=== PATIENT | female | born 1985 | race Caucasian/White ===

== ENCOUNTER → 2016-08-22 | Outpatient (CLI) | payer MEDICAID | LOC: CIMAGING 12:23 | PROVIDERS: ATTEND Family Medicine | DX: O26.843 Uterine size-date discrepancy, third trimester (principal); Z3A.28 28 weeks gestation of pregnancy ==

== ENCOUNTER → 2016-08-28 | Outpatient (CLI) | payer MEDICAID | LOC: FIMAGING 09:58 | PROVIDERS: ATTEND Family Medicine | DX: Z34.93 Encounter for supervision of normal pregnancy, unspecified, third trimester (principal); Z3A.31 31 weeks gestation of pregnancy ==

== ENCOUNTER → 2016-09-18 | Outpatient (CLI) | payer MEDICAID | LOC: FIMAGING 13:07 | PROVIDERS: ATTEND Family Medicine | DX: O36.5930 Maternal care for other known or suspected poor fetal growth, third trimester, not applicable or unspecified (principal); Z3A.34 34 weeks gestation of pregnancy ==

== ENCOUNTER → 2016-10-02 | Outpatient (CLI) | payer MEDICAID | LOC: FIMAGING 12:06 | PROVIDERS: ATTEND Family Medicine | DX: Z34.93 Encounter for supervision of normal pregnancy, unspecified, third trimester (principal); Z3A.36 36 weeks gestation of pregnancy ==

== ENCOUNTER → 2016-10-14 | Outpatient (CLI) | payer MEDICAID | LOC: FIMAGING 13:42 | PROVIDERS: ATTEND Family Medicine | DX: O36.5930 Maternal care for other known or suspected poor fetal growth, third trimester, not applicable or unspecified (principal); Z3A.38 38 weeks gestation of pregnancy ==

== ENCOUNTER → 2016-12-23 | Outpatient (CLI) | payer MEDICAID | LOC: FIMAGING 10:10 | PROVIDERS: ATTEND Family Medicine | DX: Z12.39 Encounter for other screening for malignant neoplasm of breast (principal); N63 Unspecified lump in breast ==

== ENCOUNTER 2017-03-27 13:11 | Emergency (ER) | payer MEDICAID ==
[2017-03-27] MEDS ORDERED: NS 1,000 ML IV ONE ×4 (13:26→15:23)
--- NOTE | 2017-03-27 13:26 | EDPHY ---
H & P Stated Complaint: 2 WEEKS DIARRHEA/LOW BACK PAIN TODAY FELT FAINT/SEEING SPOTS Time Seen by Provider: 03/27/17 13:26 HPI/ROS: CHIEF COMPLAINT: Lightheadedness, right back pain, intermittent diarrhea for 2 weeks HISTORY OF PRESENT ILLNESS: Patient has a 2 week history of intermittent diarrhea. The patient developed symptoms of lightheadedness, syncope, right back pain, right hip pain and subjective fevers earlier today. The patient denies any dysuria, cough or acute abdominal pain. The patient denies any recent antibiotic use. She has no history of fall or trauma. The patient did reportedly take Plan B last week. She denies any vaginal bleeding or discharge. The patient denies significant past medical history. The patient has no acute neurologic symptoms of numbness or weakness. The patient has developed a fine rash on her chest face and extremities. REVIEW OF SYSTEMS: A comprehensive 10 point review of systems is otherwise negative aside from elements mentioned in the history of present illness. Source: Patient Exam Limitations: No limitations - Personal History LMP (Females 10-55): 8-14 Days Ago Current Tetanus/Diphtheria Vaccine: Yes - Medical/Surgical History Hx Asthma: No Hx Chronic Respiratory Disease: No Hx Diabetes: No Hx Cardiac Disease: No Hx Renal Disease: No Hx Cirrhosis: No Hx Alcoholism: No Hx HIV/AIDS: No Hx Splenectomy or Spleen Trauma: No Other PMH: r elbow surgery/ MIGRAINES - Social History Smoking Status: Former smoker - Physical Exam Exam: General Appearance: Alert, no distress Eyes: Pupils equal and round no pallor or injection ENT, Mouth: Mucous membranes moist Respiratory: There are no retractions, lungs are clear to auscultation Cardiovascular: Regular rate and rhythm Gastrointestinal: Abdomen is soft and nontender, no masses, bowel sounds normal back: Right CVA tenderness Neurological: A&O, normal motor function, normal sensory exam, normal cranial nerves Skin: Fine papular rash consistent with viral is anthem Musculoskeletal: Neck is supple nontender Extremities: symmetrical, full range of motion Constitutional: Initial Vital Signs Temperature (C) 37 C 03/27/17 13:19 Heart Rate 102 H 03/27/17 13:19 Respiratory Rate 20 03/27/17 13:19 Blood Pressure 153/99 H 03/27/17 13:19 O2 Sat (%) 96 03/27/17 13:19 O2 Delivery Mode Room Air Allergies/Adverse Reactions: No Known Allergies Allergy (Verified 03/27/17 13:18) Home Medications: Medication Instructions Recorded NK [No Known Home Meds] 03/27/17 Medical Decision Making - Diagnostics EKG Interpretation: EKG: Complete interpretation has been separately recorded in the [facility] [employer] archive. Summary impression: Sinus rhythm, rate 98, single PVC noted ED Course/Re-evaluation: The patient presents to the ED for evaluation of lightheadedness, back pain and mild right hip pain. The patients urinalysis demonstrates no evidence of an acute infection. The patient's laboratory studies are within normal limits. The patient's EKG demonstrates no evidence of arrhythmia. The patient received IV fluid rehydration in the emergency department. She underwent serial examinations by myself. She is currently feeling much better. The patient's laboratory workup is unrevealing. The patient's EKG demonstrates no evidence of an obvious arrhythmia. The patient underwent serial examinations in the ED by myself over a 3 hour period. She is feeling much better at this time. The patient will return to the emergency department for any recurrent or worsening symptoms. Differential Diagnosis: Differential diagnosis considered includes dehydration, arrhythmia, metabolic abnormality, ectopic , viral syndrome - Data Points Laboratory Results: Laboratory Results 03/27/17 13:45 03/27/17 13:45 03/27/17 03/27/17 03/27/17 15:00 13:45 13:45 WBC RBC Hgb Hct MCV MCH MCHC RDW Plt Count MPV Neut % (Auto) Lymph % (Auto) [place] % (Auto) Eos % (Auto) Baso % (Auto) Nucleat RBC Rel Count Absolute Neuts (auto) Absolute Lymphs (auto) Absolute Monos (auto) Absolute Eos (auto) Absolute Basos (auto) Absolute Nucleated RBC Immature Gran % Immature Gran # Sodium 137 mEq/L mEq/L (134-144) Potassium 3.5 mEq/L mEq/L (3.5-5.2) Chloride 100 mEq/L mEq/L (97-110) Carbon Dioxide 18 mEq/l L mEq/l (22-31) Anion Gap 19 mEq/L H mEq/L (8-16) BUN 5 mg/dL L mg/dL (7-23) Creatinine 0.8 mg/dL mg/dL (0.6-1.0) Estimated GFR > 60 Glucose 107 mg/dL H mg/dL (70-100) Calcium 9.4 mg/dL mg/dL (8.5-10.4) Beta HCG, Qual NEGATIVE Urine Color PALE YELLOW Urine Appearance CLEAR Urine pH 6.0 (5.0-7.5) Ur Specific [place] 1.003 (1.002-1.030) Urine Protein NEGATIVE (NEGATIVE) Urine Ketones 1+ H (NEGATIVE) Urine Blood NEGATIVE (NEGATIVE) Urine Nitrate NEGATIVE (NEGATIVE) Urine Bilirubin NEGATIVE (NEGATIVE) Urine Urobilinogen NEGATIVE EU EU (0.2-1.0) Ur Leukocyte Esterase NEGATIVE (NEGATIVE) Urine Glucose NEGATIVE (NEGATIVE) 03/27/17 13:45 WBC 7.65 10^3/uL 10^3/uL (3.80-9.50) RBC 4.29 10^6/uL 10^6/uL (4.18-5.33) Hgb 14.7 g/dL g/dL (12.6-16.3) Hct 41.1 % % (38.0-47.0) MCV 95.8 fL fL (81.5-99.8) MCH 34.3 pg H pg (27.9-34.1) MCHC 35.8 g/dL g/dL (32.4-36.7) RDW 14.7 % % (11.5-15.2) Plt Count 192 10^3/uL 10^3/uL (150-400) MPV 9.9 fL fL (8.7-11.7) Neut % (Auto) 56.0 % % (39.3-74.2) Lymph % (Auto) 35.2 % % (15.0-45.0) [place] % (Auto) 7.3 % % (4.5-13.0) Eos % (Auto) 0.7 % % (0.6-7.6) Baso % (Auto) 0.5 % % (0.3-1.7) Nucleat RBC Rel Count 0.0 % % (0.0-0.2) Absolute Neuts (auto) 4.29 10^3/uL 10^3/uL (1.70-6.50) Absolute Lymphs (auto) 2.69 10^3/uL 10^3/uL (1.00-3.00) Absolute Monos (auto) 0.56 10^3/uL 10^3/uL (0.30-0.80) Absolute Eos (auto) 0.05 10^3/uL 10^3/uL (0.03-0.40) Absolute Basos (auto) 0.04 10^3/uL 10^3/uL (0.02-0.10) Absolute Nucleated RBC 0.00 10^3/uL 10^3/uL (0-0.01) Immature Gran % 0.3 % % (0.0-1.1) Immature Gran # 0.02 10^3/uL 10^3/uL (0.00-0.10) Sodium Potassium Chloride Carbon Dioxide Anion Gap BUN Creatinine Estimated GFR Glucose Calcium Beta HCG, Qual Urine Color Urine Appearance Urine pH Ur Specific [place] Urine Protein Urine Ketones Urine Blood Urine Nitrate Urine Bilirubin Urine Urobilinogen Ur Leukocyte Esterase Urine Glucose Medications Given: Discontinued Medications Sodium Chloride (Ns) 1,000 mls @ 0 mls/hr IV EDNOW ONE; Wide Open PRN Reason: Protocol Stop: 03/27/17 13:27 Last Admin: 03/27/17 13:46 Dose: 1,000 mls Sodium Chloride (Ns) 1,000 mls @ 0 mls/hr IV EDNOW ONE; Wide Open PRN Reason: Protocol Stop: 03/27/17 15:24 Last Admin: 03/27/17 15:28 Dose: 1,000 mls Departure - Departure Disposition: Home, Routine, Self-Care Clinical Impression: Dehydration, Vasovagal episode Condition: Good Instructions: Dehydration (ED) Additional Instructions: 1. Please increase your fluid intake as mild dehydration likely contributed your symptoms today. 2. Please return to the ED for markedly worsening symptoms or other concerns. 3. Please schedule a follow-up appointment with your primary care provider as needed. Referrals: Rosa Prado MD [Medical Doctor] - As per Instructions
--- NOTE | 2017-03-27 13:54 | CPEKG ---
Heart Rate: 98 RR Interval: 612 P-R Interval: 176 QRSD Interval: 82 QT Interval: 332 QTC Interval: 424 P [place]: 52 QRS [place]: -21 T Wave [place]: -12 EKG Severity - BORDERLINE ECG - EKG Impression: SINUS RHYTHM EKG Impression: VENTRICULAR PREMATURE COMPLEX Electronically Signed By: Ramiro Beltrán 27-Mar-2017 13:59:01
[2017-03-27 14:03] LABS: PLATELET COUNT 192 10^3/uL (150-400)
[2017-03-27 17:06] VITALS: BP 124/92; PULSE 92; RESP 18; TEMP 98.4; O2SAT 97
== END 2017-03-27 17:06 | disposition home or self-care (01) ==
DX: R55 Syncope and collapse (principal); E86.0 Dehydration; E86.9 Volume depletion, unspecified; Z87.891 Personal history of nicotine dependence

== ENCOUNTER 2017-10-04 01:08 | Inpatient (IN) | payer MEDICAID ==
[2017-10-04] MEDS ORDERED: PANTOPRAZOLE SODIUM 40 MG VIAL IVP ONE (01:21)
[2017-10-04] MEDS ORDERED: ONDANSETRON 4 MG/2 ML VIAL IVP ONE (01:21)
[2017-10-04] MEDS ORDERED: NS 1,000 ML IV ONE ×3 (01:21→03:41)
[2017-10-04] MEDS ORDERED: LORazepam 2 MG/ML INJ IVP ONE (01:22)
--- NOTE | 2017-10-04 01:24 | EDPHY ---
H & P Stated Complaint: vomiting, recent episode of heavy drinking - Personal History LMP (Females 10-55): Now - Medical/Surgical History Hx Asthma: No Hx Chronic Respiratory Disease: No Hx Diabetes: No Hx Cardiac Disease: No Hx Renal Disease: No Hx Cirrhosis: No Hx Alcoholism: No Hx HIV/AIDS: No Hx Splenectomy or Spleen Trauma: No Other PMH: r elbow surgery/ MIGRAINES - Social History Smoking Status: Former smoker Time Seen by Provider: 10/04/17 01:18 HPI/ROS: Chief complaint: Nausea and vomiting with abdominal pain History of present illness: This is a 32-year-old female who reports a history of anorexia and heavy alcohol use who presents to the emergency department with nausea and vomiting with associated abdominal pain. She was visiting [place] for the last week. She reports she drank extensive alcohol while she was down there. She states her last drink was a few days ago. Today she awoke and became nauseous and started to vomit, multiple episodes described as nonbloody. She has had associated abdominal pain and generalized feeling of malaise. No report of fever, no diarrhea or constipation, no blood in the stools, no urinary symptoms. Review of systems: A 10 point review of systems was obtained and other than described above was negative (Jhonny Gonzalez) - Physical Exam Exam: General Appearance: Alert, unwell but nontoxic appearing.. Eyes: Pupils equal and round no pallor or injection. ENT, Mouth: Mucous membranes moist. Respiratory: There are no retractions, lungs are clear to auscultation. Cardiovascular: Regular rate and rhythm. Gastrointestinal: Bowel sounds normal. Diffuse tenderness with mild guarding. Neurological: Alert and oriented x4. Strength and sensation intact and symmetrical. Skin: Warm and dry, no rashes. Musculoskeletal: Neck is supple non tender. Extremities are symmetrical, full range of motion. Psychiatric: Patient is oriented X 3, there is no agitation. (Jhonny Gonzalez) Constitutional: Initial Vital Signs Temperature (C) 37.0 C 10/04/17 01:14 Heart Rate 133 H 10/04/17 01:14 Respiratory Rate 18 10/04/17 01:14 Blood Pressure 128/90 H 10/04/17 01:14 O2 Sat (%) 97 10/04/17 01:14 O2 Delivery Mode Room Air Allergies/Adverse Reactions: No Known Allergies Allergy (Verified 03/27/17 13:18) Home Medications: Medication Instructions Recorded NK [No Known Home Meds] 10/04/17 Medical Decision Making ED Course/Re-evaluation: Care of patient is turned over to my attending physician Dr. Davon Mitchell at end of shift. (Jhonny Gonzalez) 0309: I did go re-evaluate the patient. Resting comfortably. Her blood work is concerning for severe dehydration as well as alcohol ketoacidosis. She has received 2 L of fluid. I will repeat her BMP. Patient will need to be admitted to the hospital. No evidence of withdrawal at this time. Thiamine and folate ordered. CT scan abdomen pelvis with IV contrast shows significant hepatomegaly concerning for significant fatty liver infiltrate from alcohol. Esophageal distal wall thickening. Chest x-ray one view shows no evidence of acute inflammatory process. EKG interpretation by me on record in [facility] system. Impression time of EKG 4 4:00 a.m., sinus tachycardia rate of 105 no significant T-wave abnormalities. No ST elevation. No ST depression. 0408: Spoke with the hospitalist service Dr. Flowers. Agrees to admit the patient for alcohol ketoacidosis. Critical Care: Total Critical Care Time Spent Managing this Patient: 65 Minutes. This time was spent Exclusively with this patient. This Care was exclusive of procedures. The Organ System/life at risk was AKA, dehydration This Patient was in Critical Condition because alcohol ketoacidosis, dehydration, electrolyte disturbance (Davon Mitchell) - Data Points Laboratory Results: Laboratory Results 10/04/17 01:42 10/04/17 03:06 Microbiology Results: MICROBIOLOGY 10/04/17 04:00 Blood Blood Culture - Preliminary Medications Given: Folic Acid (Folic Acid) 1 mg PO DAILY JESSICA Stop: 04/03/18 08:59 Last Admin: 10/05/17 08:25 Dose: 1 mg Dextrose/Sodium Chloride (D5w 1/2 Ns) 1,000 mls @ 150 mls/hr IV CONT JESSICA Stop: 04/02/18 04:59 Last Admin: 10/06/17 03:44 Dose: 1,000 mls Potassium Chloride (Potassium Cl 10 Meq (Premix)) 100 mls @ 100 mls/hr IV Q1H JESSICA Stop: 10/06/17 05:23 Last Admin: 10/06/17 04:16 Dose: Not Given Multivitamins (Tab-A-Darrick) 1 each PO DAILY JESSICA Stop: 04/03/18 08:59 Last Admin: 10/05/17 08:25 Dose: 1 each Ondansetron HCl (Zofran) 4 mg IVP Q4HRS PRN PRN Reason: Nausea/Vomiting, Can't Take PO Stop: 04/02/18 04:06 Last Admin: 10/04/17 11:33 Dose: 4 mg Pantoprazole Sodium (Protonix) 40 mg IVP DAILY JESSICA Stop: 04/02/18 08:59 Last Admin: 10/05/17 08:21 Dose: 40 mg Sucralfate (Carafate Suspension) 1 gm PO ACHS JESSICA Stop: 04/02/18 11:29 Last Admin: 10/05/17 19:47 Dose: 1 gm Thiamine HCl (Vitamin B-1) 100 mg PO DAILY JESSICA Stop: 04/03/18 04:09 Last Admin: 10/05/17 08:24 Dose: Not Given Discontinued Medications Folic Acid (Folic Acid) 1 mg PO EDNOW ONE Stop: 10/04/17 03:00 Last Admin: 10/04/17 03:27 Dose: 1 mg Sodium Chloride (Ns) 1,000 mls @ 0 mls/hr IV EDNOW ONE; Wide Open PRN Reason: Protocol Stop: 10/04/17 01:22 Last Admin: 10/04/17 01:38 Dose: 1,000 mls Sodium Chloride (Ns) 1,000 mls @ 0 mls/hr IV EDNOW ONE; Wide Open PRN Reason: Protocol Stop: 10/04/17 01:22 Last Admin: 10/04/17 01:40 Dose: 1,000 mls Sodium Chloride (Ns) 1,000 mls @ 0 mls/hr IV ONCE ONE PRN Reason: Wide Open Stop: 10/04/17 03:42 Last Admin: 10/04/17 04:09 Dose: 1,000 mls Calcium Gluconate (Calcium Gluconate 1 Gm (Premix)) 50 mls @ 100 mls/hr IV ONCE ONE Stop: 10/04/17 10:45 Last Admin: 10/04/17 11:11 Dose: 50 mls Magnesium Sulfate (Magnesium Sulf 2 Gm (Premix)) 50 mls @ 50 mls/hr IV ONCE ONE Stop: 10/04/17 22:59 Last Admin: 10/04/17 23:05 Dose: 50 mls Potassium Phosphate 20 mmol/ (Dextrose) 256.6667 mls @ 42.778 mls/hr IV ONCE@ 1200 ONE Stop: 10/05/17 17:59 Last Admin: 10/05/17 09:49 Dose: 256.6667 mls Potassium Phosphate 10 mmol/ (Dextrose) 253.3333 mls @ 42.222 mls/hr IV ONCE ONE Stop: 10/06/17 00:29 Last Admin: 10/05/17 18:30 Dose: 253.3333 mls Lorazepam (Ativan Injection) 1 mg IVP EDNOW ONE Stop: 10/04/17 01:23 Last Admin: 10/04/17 01:41 Dose: 1 mg Ondansetron HCl (Zofran) 4 mg IVP EDNOW ONE Stop: 10/04/17 01:22 Last Admin: 10/04/17 01:39 Dose: 4 mg Pantoprazole Sodium (Protonix) 40 mg IVP EDNOW ONE Stop: 10/04/17 01:22 Last Admin: 10/04/17 01:43 Dose: 40 mg Potassium Chloride (Klor-Con) 40 meq PO ONCE ONE Stop: 10/05/17 08:01 Last Admin: 10/05/17 08:24 Dose: 40 meq Potassium Chloride (Klor-Con) 10 - 40 meq PO ONCE ONE PRN Reason: Protocol Stop: 10/05/17 16:57 Last Admin: 10/05/17 17:01 Dose: 20 meq Sodium Bicarbonate (Sodium Bicarbonate) 50 meq IVP ONCE ONE Stop: 10/04/17 10:15 Last Admin: 10/04/17 11:11 Dose: 50 meq Sodium Polystyrene Sulfonate (Kayexalate) 15 gm PO ONCE ONE Stop: 10/04/17 10:17 Last Admin: 10/04/17 11:11 Dose: 15 gm Thiamine HCl (Vitamin B-1) 100 mg PO EDNOW ONE Stop: 10/04/17 03:26 Last Admin: 10/04/17 03:27 Dose: 100 mg Departure - Departure Disposition: [facility] Acute Clinical Impression: Alcoholic ketoacidosis Condition: Serious
[2017-10-04 02:24] LABS: PLATELET COUNT 222 10^3/uL (150-400)
[2017-10-04] MEDS ORDERED: FOLIC ACID 1 MG TAB PO ONE (02:59)
[2017-10-04 03:22] LABS: CREATINE KINASE 93 IU/L (0-156)
[2017-10-04] MEDS ORDERED: THIAMINE HCL 100 MG TAB PO ONE (03:25)
[2017-10-04] MEDS ORDERED: IOPAMIDOL (ISOVUE-300) 100 ML BTL ONE (03:29)
[2017-10-04] MEDS ORDERED: ONDANSETRON DISINTEGRATING 4 MG TAB PO PRN (04:07)
[2017-10-04] MEDS ORDERED: ACETAMINOPHEN 325 MG TAB PO PRN (04:07)
[2017-10-04] MEDS ORDERED: LORazepam 2 MG/ML INJ IVP PRN (04:10)
[2017-10-04] MEDS ORDERED: FLUMAZENIL 0.5 MG/5 ML MDV IVP PRN (04:10)
[2017-10-04 04:35] LABS: INR 1.09 (0.83-1.16); PROTIME(PATIENT) 14.3 SEC (12.0-15.0)
--- NOTE | 2017-10-04 04:46 | CPEKG ---
Heart Rate: 105 RR Interval: 571 P-R Interval: 184 QRSD Interval: 76 QT Interval: 344 QTC Interval: 455 P [place]: 59 QRS [place]: -21 T Wave [place]: 13 EKG Severity - BORDERLINE ECG - EKG Impression: SINUS TACHYCARDIA EKG Impression: BORDERLINE LEFT AXIS DEVIATION EKG Impression: BORDERLINE T WAVE ABNORMALITIES Electronically Signed By: Davon Mitchell 04-Oct-2017 06:56:56
[2017-10-04 04:47] LABS: PLATELET COUNT 126 10^3/uL (150-400)
[2017-10-04] MEDS: D5W 1/2 NS 1,000 ML IV SCH ×2 (04:59→13:38)
--- NOTE | 2017-10-04 05:08 | PDGENHP ---
History and Physical - Chief Complaint Nausea, vomiting - History of Present Illness 32 yo F p/w one day of persistent nausea and vomiting. Patient tells me she has been drinking heavily as of late. She recently came back from a week long trip to [place] where she drank 10+ drinks daily. She has a difficult time quantifying how much she drinks usually at home, but I get the impression that it might be similar amounts. She gave to her daughter one year ago. She tells me she was sober for a few months after that but her drinking has picked up progressively since. She is tearful during our conversation and also tells me of recent panic attacks. In addition, she describes herself as anorexic. She admits to only consuming 200-300 non alcohol calories on a usual day and has lost significant weight over the last year. During our conversation she claimed several times that she heard her daughter outside the room when in reality her daughter is at home with her . ED evaluation is notable for significant electrolyte abnormalities, alcoholic hepatitis, and likely gastritis/possible pancreatitis. History Information - Allergies/Home Medication List Allergies/Adverse Reactions: No Known Allergies Allergy (Verified 03/27/17 13:18) Home Medications: NK [No Known Home Meds] 03/27/17 [Last Taken Unknown] I have personally reviewed and updated: family history, medical history - Past Medical History no pertinent PMH - Surgical History Additional surgical history: B/l arm surgery for orthopedic injuries - Family History Positive for: cancer (GM has leukemia) - Social History Smoking Status: Former smoker Alcohol Use: Heavy Review of Systems Review of Systems: ROS: 10pt was reviewed & negative except for what was stated in HPI & below Physical Exam Physical Exam: Temp Pulse Resp BP Pulse Ox 36.7 C 110 H 16 107/77 96 10/04/17 02:00 10/04/17 04:00 10/04/17 04:00 10/04/17 04:00 10/04/17 04:00 Constitutional: no apparent distress, uncomfortable Eyes: PERRL, EOMI Ears, Nose, Mouth, Throat: moist mucous membranes, no oral mucosal ulcers Cardiovascular: no murmur, rub, or gallop, tachycardia Respiratory: no respiratory distress, clear to auscultation Gastrointestinal: normoactive bowel sounds, tenderness (RUQ, epi-gastric), No guarding, No rebound, No distension Skin: warm, normal color Musculoskeletal: full muscle strength, no muscle tenderness Neurologic: AAOx3, CN II-XII Intact, other (Mild tongue fasciculations, no tremor) Psychiatric: interacting appropriately, anxious, depressed Lab Data & Imaging Review 10/04/17 04:20 10/04/17 03:06 WBC 14.60 10^3/uL (3.80-9.50) H 10/04/17 04:20 RBC 3.62 10^6/uL (4.18-5.33) L 10/04/17 04:20 Hgb 12.8 g/dL (12.6-16.3) 10/04/17 04:20 Hct 39.3 % (38.0-47.0) 10/04/17 04:20 MCV 108.6 fL (81.5-99.8) H 10/04/17 04:20 MCH 35.4 pg (27.9-34.1) H 10/04/17 04:20 MCHC 32.6 g/dL (32.4-36.7) 10/04/17 04:20 RDW 14.0 % (11.5-15.2) 10/04/17 04:20 Plt Count 126 10^3/uL (150-400) L 10/04/17 04:20 MPV 10.2 fL (8.7-11.7) 10/04/17 04:20 Neut % (Auto) 81.0 % (39.3-74.2) H 10/04/17 04:20 Lymph % (Auto) 15.1 % (15.0-45.0) 10/04/17 04:20 [place] % (Auto) 3.2 % (4.5-13.0) L 10/04/17 04:20 Eos % (Auto) 0.0 % (0.6-7.6) L 10/04/17 04:20 Baso % (Auto) 0.3 % (0.3-1.7) 10/04/17 04:20 Nucleat RBC Rel Count 0.0 % (0.0-0.2) 10/04/17 04:20 Absolute Neuts (auto) 11.82 10^3/uL (1.70-6.50) H 10/04/17 04:20 Absolute Lymphs (auto) 2.21 10^3/uL (1.00-3.00) 10/04/17 04:20 Absolute Monos (auto) 0.47 10^3/uL (0.30-0.80) 10/04/17 04:20 Absolute Eos (auto) 0.00 10^3/uL (0.03-0.40) L 10/04/17 04:20 Absolute Basos (auto) 0.04 10^3/uL (0.02-0.10) 10/04/17 04:20 Absolute Nucleated RBC 0.00 10^3/uL (0-0.01) 10/04/17 04:20 Immature Gran % 0.4 % (0.0-1.1) 10/04/17 04:20 Immature Gran # 0.06 10^3/uL (0.00-0.10) 10/04/17 04:20 PT 14.3 SEC (12.0-15.0) 10/04/17 01:42 INR 1.09 (0.83-1.16) 10/04/17 01:42 VBG Lactic Acid 3.4 mmol/L (0.7-2.1) H D 10/04/17 04:20 Sodium 148 mEq/L (135-145) H 10/04/17 03:06 Potassium 5.9 mEq/L (3.5-5.2) H 10/04/17 03:06 Chloride 108 mEq/L (97-110) 10/04/17 03:06 Carbon Dioxide 9 mEq/l (22-31) L* 10/04/17 03:06 Anion Gap 31 mEq/L (8-16) H 10/04/17 03:06 BUN 9 mg/dL (7-23) 10/04/17 03:06 Creatinine 0.8 mg/dL (0.6-1.0) 10/04/17 03:06 Estimated GFR > 60 10/04/17 03:06 Glucose 68 mg/dL (70-100) L 10/04/17 03:06 Calcium 7.3 mg/dL (8.5-10.4) L D 10/04/17 03:06 Phosphorus 6.3 mg/dL (2.5-4.5) H 10/04/17 01:42 Magnesium 1.8 mg/dL (1.6-2.3) 10/04/17 01:42 Total Bilirubin 1.6 mg/dL (0.1-1.4) H 10/04/17 01:42 Conjugated Bilirubin 1.3 mg/dL (0.0-0.5) H 10/04/17 01:42 Unconjugated Bilirubin 0.3 mg/dL (0.0-1.1) 10/04/17 01:42 AST 599 IU/L (14-46) H 10/04/17 01:42 ALT 196 IU/L (9-52) H 10/04/17 01:42 Alkaline Phosphatase 120 IU/L (38-126) 10/04/17 01:42 Creatine Kinase 93 IU/L (0-156) 10/04/17 03:06 Total Protein 9.0 g/dL (6.3-8.2) H 10/04/17 01:42 Albumin 5.8 g/dL (3.5-5.0) H 10/04/17 01:42 Lipase 415 IU/L (23-300) H 10/04/17 01:42 Beta HCG, Qual NEGATIVE 10/04/17 01:42 Ethyl Alcohol 11 mg/dL (0-10) H 10/04/17 01:42 Imaging Review: CT A/P Prelim: Clinical HX: recent drinking binge, alcoholic ketoacidosis and dehydration with N/V Distal esophageal wall thickening, c/w esophagitis (no pneumomediastinum/ Boerhaave's--no h/o hematemesis) Profound hepatic steatosis with hepatomegaly of right and left hepatic lobes ( 22 cm CC, RHL) Normal pancreatic contour and enhancement, though trace FF caudal to panc head, near descending duodenum, near IVC (lipase is mildly elevated at 415) No mechancial obstruction; nl appx Gallbladder hydrops. 19 mm right ovarian follicular cyst; no FF Results called to Dr. Mitchell at 4 am. MB Visualized and Interpreted Chest x-ray results: Yes Chest X-Ray results: no infiltrate, normal heart size Visualized and Interpreted EKG results: Yes EKG Interpretation: Positive for: normal sinsus rhythm, NS ST wave abnormalities Assessment & Plan Assessment: 32 yo F w/ significant ETOH abuse p/w nausea/vomiting and found to have electrolyte disturbances, severe acidosis, alcoholic hepatitis, and possible gastritis/pancreatitis as well. Plan: 1. Alcoholic hepatitis - AST>>ALT and mildly elevated bilirubin. DF only 6.2 so no indication for steroids. CT reveals profound hepatic steatosis with hepatomegaly consistent with prolonged, heavy ETOH use. - Admit to SDU for supportive care 2. Nausea, vomiting - I suspect this is due to combination of alcoholic hepatitis, gastritis/esophagitis, and possible pancreatitis (trace free fluid seen around pancreas on CT, lipase 415). - Clear liquid diet, ADAT - IVF, anti-emetics - PPI IV qD 3. AGMA - HCO3 of 8 and AG of 42 on presenting labs. I suspect this is a combination of alcoholic ketoacidosis, starvation ketosis, and lactic acidosis. - S/p 3 L IVF - Will start D5-1/2 NS maintenance IVF - Repeat chemistry ordered for noon 4. Hyperkalemia - Most likely 2/2 acidosis and resulting extracellular shift. No ECG changes currently. - Monitor on telemetry - Repeat chemistry ordered for noon 5. Leukocytosis - No additional evidence of infection currently; this is possibly due to alcoholic hepatitis and stress response from vomiting. CXR without infiltrate. - UA, blood cultures, procalcitonin ordered to complete infectious work-up 6. ETOH abuse - Patient drank 10+ drinks daily for the last week and I suspect drinks similar amounts at baseline. CT reveals profound hepatic steatosis with hepatomegaly consistent with prolonged, heavy ETOH use. - CIWA protocol placed to monitor for w/d - Folate, thiamine, MVI daily - Case management consult placed 7. Depression, anxiety - I suspect severe post- depression in this patient and that she is likely self-medicating with alcohol. During our conversation she repeatedly claimed to hear her daughter crying outside the room , although her daughter is at home with her . This may represent psychotic features in addition. 8. Anorexia - Patient claims to consume <500 non-alcohol calories daily. This puts her at high risk for refeeding syndrome. - Monitor electrolytes closely, including Mg, Ph - Monitor on telemetry Diet - Clears, ADAT Code - Full Ppx - SCDs Dispo - Admit under inpatient status noting severe electrolyte derangements and high risk for ETOH w/d.
[2017-10-04] MEDS: ONDANSETRON 4 MG/2 ML VIAL IVP PRN ×2 (05:52→11:33)
--- NOTE | 2017-10-04 06:38 | PDMN ---
Medical Necessity Medical necessity: C/M review: est. > 2 MN LOS for eval and TX of acute - alcoholic hepatitis, nausea, vomiting, severe anion gap metabolic acidosis, hyperkalemia, leukocytosis, severe electrolyte derangements, high risk for alcohol withdrawal, requiring planned Case Management consult, ongoing IV fluids, IV PPI, IV antiemetics, cardiac monitoring, CIWA protocol, pulse oximetry, electrolyte monitoring, comorbid alcohol abuse, depression, anxiety, anorexia per H/P.
[2017-10-04] MEDS ORDERED: THIAMINE HCL 100 MG in NS 100 ML IV SCH (09:00)
[2017-10-04] MEDS ORDERED: SODIUM BICARBONATE 50 MEQ/50 ML SYR IVP ONE (10:14)
[2017-10-04] MEDS ORDERED: SODIUM POLY SULF 15 GM/60 ML BOTTLE PO ONE (10:16)
[2017-10-04] MEDS ORDERED: CALCIUM GLUCONATE 50 ML IV ONE (10:16)
--- NOTE | 2017-10-04 11:08 | HOSPPROG ---
Hospitalist Progress Note Assessment/Plan: Alcoholic hepatitis - DF 6.2, no indication for steroids. CT reveals profound hepatic steatosis with hepatomegaly consistent with prolonged, heavy ETOH use. 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 She plans to remove herself from this environment. Was sober during . - CIWA for possible impending withdrawal - Folate, thiamine, MVI daily - Case management consult placed. Pt plans to go home to [place] for inpt tx. Nausea, vomiting - 2/2 alcoholic hepatitis, gastritis/esophagitis, and possible pancreatitis (trace free fluid seen around pancreas on CT, lipase 415). - Cont clears - IVF, anti-emetics - Cont IV PPI AGMA - HCO3 of 8-->9 and AG of 42-->32. Likely alcoholic ketoacidosis, starvation ketosis, and lactic acidosis 2/2 volume depletion. - S/p 3 L IVF - Cont maintenance IVF's D5-1/2 NS - Repeat chemistry this afternoon Hyperkalemia - K on the rise to 5.9 from 5.7, 2/2 acidosis and resulting extracellular shift. No ECG changes. - Calcium gluconate to stabilize myocardium. - NaHCO3 now plus Kayexalate - Repeat chemistry at 1400 Leukocytosis - No e/o infection; likely 2/2 volume depletion, alcoholic hepatitis and stress response. CXR without infiltrate. - wbc's trending down with IVF's - BCx's pending Depression, anxiety - Suspect post- depression, self-medicating with alcohol. - CM consult - consider initiation of SSRI when condition stabilizes Anorexia - Patient claims to consume <500 non-alcohol calories daily. - monitor lytes, at risk for re-feeding syndrome Diet - Clears, ADAT Code - Full Ppx - SCDs Dispo - Cont inpt, SDU status. Subjective: Pt tearful, remorseful about heavy etoh use. Has 1 yr old daughter. August also heavy drinker. She is motivated to get sober and plans to move back to [place] where her parents live for inpt etoh tx. Denies fevers/ chills. N/V better. Some epigastric pain persists. Objective: Vital Signs Temp Pulse Resp BP Pulse Ox 37.2 C 103 H 24 H 117/80 99 10/04/17 09:00 10/04/17 10:00 10/04/17 10:00 10/04/17 10:00 10/04/17 10:00 Laboratory Results 10/04/17 04:20 10/03/17 10/04/17 10/05/17 05:59 05:59 05:59 Intake Total 3000 Balance 3000 PT 14.3 SEC (12.0-15.0) 10/04/17 01:42 INR 1.09 (0.83-1.16) 10/04/17 01:42 - Physical Exam Constitutional: no apparent distress Eyes: PERRL Ears, Nose, Mouth, Throat: moist mucous membranes Cardiovascular: regular rate and rhythym Respiratory: no respiratory distress, clear to auscultation Gastrointestinal: normoactive bowel sounds, other (soft, nd, mild TTP epigastrium and RUQ, no r/r/g or peritoneal signs) Skin: warm Musculoskeletal: full muscle strength Neurologic: AAOx3 Psychiatric: interacting appropriately ICD10 Worksheet Patient Problems: Problems Problem Status Onset Alcoholic ketoacidosis Acute
[2017-10-04] MEDS: PANTOPRAZOLE SODIUM 40 MG VIAL IVP SCH (11:11)
--- NOTE | 2017-10-04 11:33 | GCON ---
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 HISTORY OF PRESENT ILLNESS: The patient is a pleasant 32-year-old, white female without past medical history. She presents with complaints of nausea and vomiting. She has been drinking excessively ov the last several months. Recently she had a week-long trip to [place] where she drank approximate ly 10 alcoholic drinks per day. Prior to giving to her daughter 1 year ago, she was sober up u ntil that point and then approximately 3 months after she began drinking once again. Currently she a dmits to nausea and vomiting, but feels this is improve some. There was no chest pain, pleuritic-typ e chest pain or angina equivalent. There is no fever or night sweats. She states she also has a pro blem with anorexia. REVIEW OF SYSTEMS: A 10 point review of systems is performed, is negative with exception of what is listed in the HPI. PAST MEDICAL HISTORY: None. PAST SURGICAL HISTORY: She had left arm surgery. ALLERGIES: No known allergies to medications. MEDICATIONS: At home, none. FAMILY HISTORY: Noncontributory. PHYSICAL EXAM: VITAL SIGNS: Blood pressure 117/80, pulse is 103, respirations 24, temperature 37.2, oxygen saturation 99% on room air. GENERAL: She is a well-developed, well-nourished, 32-year-old, white female who is resting comfortably in no acute distress. HEENT: Eyes are PERRLA, EOMI. Throat shows no erythema or tonsillar hypertrophy. NECK: Supple. There is no cervical adenopathy. HEART : Regular rate and rhythm without murmurs, rubs, gallops. LUNGS: Clear to auscultation. No wheeze or rhonchi. ABDOMEN: Soft, nontender. Bowel sounds are present in all 4 quadrants. EXTREMITIES: No clubbing, cyanosis, or edema. LABORATORIES: White count 14.6, hemoglobin 12, hematocrit 39, platelet count is 126. MCV is elevate d at 108.6, INR 1.09. Sodium 148, potassium 5.9, chloride 108, CO2 is 9, BUN 9, creatinine 0.8, gluc ose is 68, AST is elevated at 599, ALT is elevated at 196. Albumin is 5.8, lipase is mildly elevated at 415. Urinalysis is negative. Alcohol level is 11. Chest x-ray is clear. IMPRESSION: 1. Alcoholism. 2. Alcoholic hepatitis with marked elevations in the AST and ALT. 3. Nausea and vomiting. 4. Hyperkalemia. 5. Depression. 6. Anorexia. RECOMMENDATIONS: 1. Agree with aggressive hydration. 2. CIWA per protocol. 3. Antiemetics. 4. Alcohol cessation counseling the patient states she is going to a program in [place] upon disch arge from this hospital. 5. Adequate nutrition. /[id number]/MODL
[2017-10-04] MEDS: SUCRALFATE 1 GM/10 ML UDCUP PO SCH ×3 (11:39→20:50)
--- NOTE | 2017-10-04 15:01 | ASMTCMCOM ---
CM Note CM Note Notes: 32yr old female admitted for N/V, ETOH abuse, anorexia. Has a Hx of ETOH abuse, ETOH hepatitis, Esophagitis, anxiety, Post partem depression. Lives with her and 1yr old. SW to consult. Date Signed: 10/04/2017 03:00 PM Electronically Signed By:Clari Jackman LCSW
--- NOTE | 2017-10-04 16:56 | ASMTCMCOM ---
CM Note CM Note Notes: Patient very concerned and tearful of how her ETOH consumption has affected her health. She is tearful and wants to be alive and caring for her infant. She reports that her mother is retired and coming from [place] Thursday to care for her infant. Patient plans to go to [place] with her mother and apply for Medicaid there and determine treatment for ETOH. She has been to AA mtgs but would rather find a counselor to talk about past hx. 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 When fiance is working the cousin cares for the infant. Patient reports that she has a degree in [employer]. A report to Child Protection was made today. This [facility] spoke to Megan Perez [phone]. Megan asked for updates on pt's condition and to let her know when pt might be discharged. Date Signed: 10/04/2017 04:55 PM Electronically Signed By:Clari Jackman LCSW
[2017-10-04] MEDS ORDERED: MAGNESIUM SULF 2 GM/WATER 50 ML IV ONE (22:00)
[2017-10-05] MEDS: THIAMINE HCL 100 MG TAB PO SCH ×2 (06:26→08:24)
[2017-10-05 06:27] LABS: PLATELET COUNT 75 10^3/uL (150-400)
[2017-10-05] MEDS ORDERED: POTASSIUM CL 20 MEQ TAB PO ONE (08:00)
[2017-10-05] MEDS ORDERED: PROTOCOL POTASSIUM 1 DOSE MISC PRN ×2 (08:01)
[2017-10-05] MEDS ORDERED: PROTOCOL K PHOSPHATE 1 DOSE IV PRN (08:01)
[2017-10-05] MEDS: SUCRALFATE 1 GM/10 ML UDCUP PO SCH ×4 (08:18→19:47)
[2017-10-05] MEDS: D5W 1/2 NS 1,000 ML IV SCH ×2 (08:20→18:19)
[2017-10-05] MEDS: PANTOPRAZOLE SODIUM 40 MG VIAL IVP SCH (08:21)
[2017-10-05] MEDS: MULTIVITAMINS 1 EACH TAB PO SCH (08:25)
[2017-10-05] MEDS: FOLIC ACID 1 MG TAB PO SCH (08:25)
[2017-10-05] MEDS ORDERED: POTASSIUM CL 10 MEQ TAB PO ONE ×2 (09:13→16:56)
--- NOTE | 2017-10-05 09:30 | HOSPPROG ---
Hospitalist Progress Note Assessment/Plan: #Alcoholic hepatitis: no indication for steroids #Hypophosphatemia/hypokalemia/hypocalemia: on protocol -check Mag as well #Etoh dependence with w/d: CIWA #Metabolic acidosis: resolved with fluids #Leukocytosis: stress-reaction, no e/o infection. Resolved #Hypernatremia: resolved #Hyperkalemia: initially, now low. #Depression/anxiety: may benefit from SSRI. Pt to think about. Plans for outpatient program in [place] where she will move in with mother to help care for baby #Anorexia: concern for refeeding; phos low, aggressive replacement. Gradually increase calories by 500 a day #Diet: regular. Calorie count, increase by 500 calories a day Time spent on visit > 35 min bedside with patient, reviewing labs. D/w Dr. Baldwin and NARINDER Subjective: no N/V/D Objective: Vital Signs Temp Pulse Resp BP Pulse Ox 37.3 C 83 20 127/92 H 97 10/04/17 19:47 10/05/17 07:40 10/05/17 07:40 10/05/17 07:40 10/05/17 07:40 Laboratory Results 10/05/17 06:10 10/05/17 06:10 10/04/17 10/05/17 10/06/17 05:59 05:59 05:59 Intake Total 7393 Balance 7393 PT 14.3 SEC (12.0-15.0) 10/04/17 01:42 INR 1.09 (0.83-1.16) 10/04/17 01:42 - Time Spent With Patient Time Spent with Patient: greater than 35 minutes Time Spent with Patient: Greater than 35 minutes spent on this patients care, greater than 50% of time spent counseling, educating, and coordinating care regarding the above mentioned plan. - Physical Exam Constitutional: no apparent distress, No cachectic Eyes: PERRL Ears, Nose, Mouth, Throat: moist mucous membranes Cardiovascular: regular rate and rhythym Respiratory: no respiratory distress Gastrointestinal: normoactive bowel sounds, soft, non-tender abdomen Genitourinary: no bladder fullness Skin: warm Musculoskeletal: full muscle strength Neurologic: AAOx3, CN II-XII Intact ICD10 Worksheet Patient Problems: Problems Problem Status Onset Alcoholic ketoacidosis Acute
[2017-10-05] MEDS ORDERED: K PHOS 20 MMOL in D5W 250 ML IV ONE (12:00)
[2017-10-05] MEDS ORDERED: PROTOCOL MAGNESIUM 1 DOSE IV PRN (12:55)
--- NOTE | 2017-10-05 14:38 | ASMTCMCOM ---
CM Note CM Note Notes: Spoke with patient, mother and fiance. Patient and mother want to go to [place] for rehab. Explained to them that it might take time to have Medicaid transferred and get on a tx list. Gave them [facility] tx res. Talked to them about what to do while waiting: AA, finding a dual dx therapist. Mother has contacts in [place] to assist and will start investigating what's appropriate. Left message for Megan, CPS [phone] that patient will be discharging in the next day or two. Date Signed: 10/05/2017 02:38 PM Electronically Signed By:Clari Jackman LCSW
--- NOTE | 2017-10-05 16:02 | PDINTPN ---
Senior Contract Specialist Progress Note Assessment/Plan: Assessment: Nausea/Vomiting: Resolved. Likely due to EtOH hepatitis and anorexia. Metabolic acidosis: Anion gap. Likely due to ketosis and lactate. Resolved with D5 IVF. Dysphagia: Likely some esophagitis. Alcoholism: No signs of withdrawal. Wants to get treatment. Anorexia: Likely anorexia nervosa. Mg, K+, Phos: Phos lower, Mg and K+ better. Likely a component of refeeding Plan: Slowly advance diet, follow Mg/phos/K+ closely. Probably can go to [facility] tomorrow if lytes/phos/Mg OK. Discharge planning to work on outpatient EtOH and eating disorder resources. D/W RN, Dr. Woodard, patient, mom, and discharge planning. 10/05/17 16:07 Subjective: Feels OK, still has discomfort with swallowing, but improving and able to take more PO. No other complaints. Objective: Vital Signs Temp Pulse Resp BP Pulse Ox 37.1 C 113 H 20 132/101 H 96 10/05/17 11:36 10/05/17 11:36 10/05/17 11:36 10/05/17 11:36 10/05/17 11:36 Laboratory Results 10/05/17 06:10 10/05/17 12:08 10/04/17 10/05/17 10/06/17 05:59 05:59 05:59 Intake Total 7393 Balance 7393 PT 14.3 SEC (12.0-15.0) 10/04/17 01:42 INR 1.09 (0.83-1.16) 10/04/17 01:42 Laboratory Tests 10/05/17 10/05/17 10/05/17 06:10 06:10 12:08 Potassium 3.8 Phosphorus 0.6 L Magnesium AST 172 H ALT 86 H Albumin 3.2 L 10/05/17 12:08 Potassium Phosphorus Magnesium 2.3 AST ALT Albumin Physical Exam - Physical Exam General Appearance: alert, no apparent distress EENT: normal ENT inspection Neck: normal inspection Respiratory: lungs clear, normal breath sounds Cardiac/Chest: normal peripheral pulses, regular rate, rhythm Abdomen: normal bowel sounds, non-tender Skin: normal color, warm/dry Extremities: normal inspection Neuro/Psych: alert, normal mood/affect, oriented x 3 ICD10 Worksheet Patient Problems: Problems Problem Status Onset Alcoholic ketoacidosis Acute
[2017-10-05] MEDS ORDERED: K PHOS 10 MMOL in D5W 250 ML IV ONE (18:30)
[2017-10-06] MEDS: D5W 1/2 NS 1,000 ML IV SCH (03:44)
[2017-10-06] MEDS: POTASSIUM Cl (KCl) 100 ML IV SCH ×2 (03:44→04:16)
[2017-10-06 04:15] VITALS: BP 129/90
[2017-10-06] MEDS ORDERED: POTASSIUM CL 10 MEQ TAB PO ONE (05:43)
--- NOTE | 2017-10-06 08:10 | HOSPPROG ---
Hospitalist Progress Note Assessment/Plan: #Alcoholic hepatitis: no indication for steroids #Hypophosphatemia/hypokalemia/hypocalemia: on protocol -check Mag as well #Etoh dependence with w/d: CIWA #Metabolic acidosis: resolved with fluids #Leukocytosis: stress-reaction, no e/o infection. Resolved #Hypernatremia: resolved #Hyperkalemia: initially, now low. #Depression/anxiety: may benefit from SSRI. Pt to think about. Plans for outpatient program in [place] where she will move in with mother to help care for baby #Anorexia: concern for refeeding; phos low, aggressive replacement. Gradually increase calories by 500 a day #Diet: regular. Calorie count, increase by 500 calories a day Time spent on visit > 35 min bedside with patient, reviewing labs. D/w Dr. Baldwin and CM Subjective: swallowing improved Objective: Vital Signs Temp Pulse Resp BP Pulse Ox 37 C 68 14 129/90 H 100 10/06/17 04:00 10/06/17 04:00 10/06/17 04:00 10/06/17 04:00 10/06/17 04:00 Laboratory Results 10/05/17 06:10 10/06/17 04:17 10/05/17 10/06/17 10/07/17 05:59 05:59 05:59 Intake Total 7393 4377 Balance 7393 4377 PT 14.3 SEC (12.0-15.0) 10/04/17 01:42 INR 1.09 (0.83-1.16) 10/04/17 01:42 - Physical Exam Constitutional: no apparent distress Eyes: PERRL Ears, Nose, Mouth, Throat: moist mucous membranes Cardiovascular: regular rate and rhythym Respiratory: no respiratory distress Gastrointestinal: normoactive bowel sounds Genitourinary: no bladder fullness Skin: warm ICD10 Worksheet Patient Problems: Problems Problem Status Onset Alcoholic ketoacidosis Acute
[2017-10-06] MEDS: SUCRALFATE 1 GM/10 ML UDCUP PO SCH (08:23)
[2017-10-06] MEDS: MULTIVITAMINS 1 EACH TAB PO SCH (08:23)
[2017-10-06] MEDS: FOLIC ACID 1 MG TAB PO SCH (08:23)
[2017-10-06] MEDS: THIAMINE HCL 100 MG TAB PO SCH (08:24)
[2017-10-06] MEDS ORDERED: PANTOPRAZOLE SODIUM 40 MG TAB PO SCH (09:00)
[2017-10-06] MEDS ORDERED: POTASSIUM/SODIUM PHOSPHATE 1 PKT PO SCH (09:45)
--- NOTE | 2017-10-06 11:16 | GDS ---
[f rep st] DISCHARGE SUMMARY DISCHARGE DIAGNOSES: 1. Alcohol dependence. 2. Anorexia. 3. Hypokalemia/hypophosphatemia/hypomagnesemia.. 4. Nausea/vomiting. 5. Esophagitis. 6. Metabolic acidosis. 7. depression. 8. Alcoholic hepatitis leukocytosis. 9. Leukocytosis. HISTORY OF PRESENT ILLNESS: A 32-year-old female presenting with persistent nausea and vomiting. She had been drinking heavily after a recent trip in [place]. Drinking at least 10 drinks a day. She gave to her daughter a year ago and has felt depressed and anxious. She has been only consuming 300- 500 calories a day. She says she has been self medicating. HOSPITAL COURSE BY PROBLEM: 1. Alcoholic hepatitis: AST/ALT were elevated secondary to alcohol binge. Discriminant function was less than 32, so no indication for steroids. 2. Alcohol dependence: She has been self medicating due to depression. No evidence of withdrawal here. Steatosis on CT. 3. Nausea, vomiting: due to alcoholic gastritis/esophagitis. 4. Esophagitis. Will discharge on H2 laney. She was advised to discontinue alcohol. 5. Anion gap metabolic acidosis: due to alcohol and starvation ketosis. This is resolved. 6. Leukocytosis: likely stress response. Negative UA and chest x-ray. Does not endorse any other infectious symptoms. 7. Depression/anxiety: depression since daughter's a year ago. Has struggled with depression prior to having her child. I had a lengthy conversation about initiating an SSRI, but decline medication now. Plans to go back to [place] with her mother, who will help care for her child. She is interested in an outpatient program for depression. Case Management has visited both the patient and family to provide resources. 8. Anorexia: She reports consuming less than 500 calories a day. She has been eating here. She had some evidence of refeeding syndrome, but electrolytes were all repleted. She would benefit again from outpatient therapy. DISPOSITION: Patient is stable for discharge home with family. NEW MEDICATIONS: Famotidine. FOLLOWUP: Establish care with either a psychiatrist or outpatient program. PHYSICAL EXAMINATION: VITAL SIGNS: Today, temperature 37, blood pressure 129/ 70, heart rate in the 70s, respirations 16, 99% on room air. GENERAL: Well- appearing, sitting up in bed, no acute distress. HEENT: PERRLA. EOMI. Oropharynx clear. CV: Regular rate and rhythm. No murmurs, gallops, or rubs. LUNGS: Clear. ABDOMEN: Soft, nontender, nondistended. Positive bowel sounds. : No Moreno. MUSCULOSKELETAL: 5/5 upper and lower extremity strength. NEUROLOGIC: 2 through 12 intact. No tongue fasciculations or tremor. PSYCH: Alert and oriented x3. Very pleasant. Time spent on DC > 35 min counseling patient on follow up, Etoh cessation and coordinating discharge. /[id number]/MODL MTDD
--- NOTE | 2017-10-06 17:15 | ASMTLACE ---
YEFRI Length of stay for Answers: 2 days current admission Acuity / Level of Answers: Yes Care: Did the patient have an inpatient admission? Comorbidities - select Answers: Mild liver or renal all that apply disease Other Notes: right elbow surgery, migraines, ano kristofer ia # of Emergency department Answers: 1-2 visits in the last 6 months Social determinants Answers: History of substance abuse (ETOH, street drugs, prescription drugs, etc.) Mental health diagnosis (anxiety, depression, pers onality disorders, etc.) Score: 15 Date Signed: 10/06/2017 10:51 AM Electronically Signed By:Clari Jackman LCSW
--- NOTE | 2017-10-07 13:42 | ASDISCHSUM ---
Discharge Information Plan Status:Home with No Needs Medically Cleared to Leave:10/06/2017 Discharge Date:10/06/2017 CM D/C Disposition:Home, Routine, Self-Care ADT D/C Disposition:Home, Routine, Self-Care Projected Discharge Date:10/06/2017 11:00 AM Transportation at D/C:Family Discharge Delay Reason: Follow-Up Date:10/06/2017 11:00 AM Discharge Slot: Final Diagnosis:N/V ETOH Hepatitis, Esophagitis, Anorexia, Depression Placement Information Patient Contact Information Contact Name:AURA Relationship:Mother Address:[address] [place]:[facility] Alternate Phone: [facility]/Zip Code:[place] [address] Email: Financial Information Financial Class:Medicaid Primary Plan Desc:MEDICAID [facility] Primary Plan Number:[id number] Secondary Plan Desc: Secondary Plan Number: Assessment Information LACE LACE Length of stay for Answers: 2 days current admission Acuity / Level of Answers: Yes Care: Did the patient have an inpatient admission? Comorbidities - select Answers: Mild liver or renal all that apply disease Other Notes: right elbow surgery, migraines, ano kristofer ia # of Emergency department Answers: 1-2 visits in the last 6 months Social determinants Answers: History of substance abuse (ETOH, street drugs, prescription drugs, etc.) Mental health diagnosis (anxiety, depression, pers onality disorders, etc.) Score: 15 Date Signed: 10/06/2017 10:51 AM Electronically Signed By:Clari Jackman LCSW [facility] CM Progress Note CM Note CM Note Notes: 32yr old female admitted for N/V, ETOH abuse, anorexia. Has a Hx of ETOH abuse, ETOH hepatitis, Esophagitis, anxiety, Post partem depression. Lives with her and 1yr old. SW to consult. Date Signed: 10/04/2017 03:00 PM Electronically Signed By:Clari Jackman LCSW [facility] NARINDER Progress Note NARINDER Arechiga CM Note Notes: Patient very concerned and tearful of how her ETOH consumption has affected her health. She is tearful and wants to be alive and caring for her infant. She reports that her mother is retired and coming from [place] Thursday to care for her infant. Patient plans to go to [place] with her mother and apply for Medicaid there and determine treatment for ETOH. She has been to AA mtgs but would rather find a counselor to talk about past hx. 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 When fiakbar is working the cousin cares for the . Patient reports that she has a degree in [employer]. A report to Child Protection was made today. This [facility] spoke to Megan Ana [phone]. Megan asked for updates on pt's condition and to let her know when pt might be discharged. Date Signed: 10/04/2017 04:55 PM Electronically Signed By:Clari Jackman LCSW [facility] NARINDER Progress Note NARINDER Arechiga CM Note Notes: Spoke with patient, mother and fiance. Patient and mother want to go to [place] for rehab. Explained to them that it might take time to have Medicaid transferred and get on a tx list. Gave them [facility] tx res. Talked to them about what to do while waiting: CHARITY, finding a dual dx therapist. Mother has contacts in [place] to assist and will start investigating what's appropriate. Left message for Megan, CPS [phone] that patient will be discharging in the next day or two. Date Signed: 10/05/2017 02:38 PM Electronically Signed By:Clari Jackman LCSW Case Management Discharge Plan Note Case Management Discharge Discharge Order Complete? Answers: Yes Patient to Obtain Answers: Independently Medications Transportation Arranged Answers: Family/Friends Transport will Pick (Date 10/06/2017 12:00 AM & Time) Discharge Comments Notes: Patient has been discharged home. Her plan is to fly to [place] and stay with her mother and find a substance tx program and get her Medicaid transferred. Date Signed: 10/06/2017 10:50 AM Electronically Signed By:Clari Jackman LCSW Intervention Information
== END 2017-10-06 11:41 | disposition home or self-care (01) | DRG 241 ==
LOC: OBSVTOIN 04:06 → F2N 09:07
PROVIDERS: ADMIT Student in an Organized Health Care Education/Training Program; ATTEND Student in an Organized Health Care Education/Training Program
DX: K29.20 Alcoholic gastritis without bleeding (principal); K70.10 Alcoholic hepatitis without ascites; E87.2 Acidosis; F10.20 Alcohol dependence, uncomplicated; R63.0 Anorexia; K20.9 Esophagitis, unspecified; F53 Mental and behavioral disorders associated with the puerperium, not elsewhere classified; Z87.891 Personal history of nicotine dependence
CPT/HCPCS: 96374; G0480; J0610; J2060; J2405; J3411; J3475; J3480; Q9967